=== PATIENT | male | born 1950 | race Caucasian/White ===

== ENCOUNTER → 2019-12-29 | Outpatient (CLI) | payer MEDICARE ==
[~2019-12-29] MED LIST: FLOM0.4C39 PO; QC A650T3 PO; VARE05TA PO
== END ==
LOC: M LABSMTC 10:59
PROVIDERS: ATTEND Anesthesiology
DX: Z01.818 Encounter for other preprocedural examination (principal); Z11.59 Encounter for screening for other viral diseases

== ENCOUNTER 2019-12-30 08:39 | Day surgery (SDC) | payer MEDICARE ==
[~2019-12-30] VITALS: Ht 182.9 cm; Wt 102.1 kg
[~2019-12-30 08:39] MED LIST changes: +LIDOCAINE 1% MDV 20ML VIAL SQ PRN; +LR 1,000 ML IV ONE; -QC A650T3 PO; +ceFAZolin SOD 2 GM in IV 1 EA IV ONE
[2019-12-30] MEDS ORDERED: QC A650T3 PO (10:05)
[2019-12-30] MEDS ORDERED: MIDAZOLAM INJ 2MG/2ML VIAL (J2250 PER 1MG) IV PRN (12:00)
[2019-12-30] MEDS ORDERED: LIDOCAINE 1% MDV 20ML VIAL As Ordered ONE (12:56)
[2019-12-30] MEDS ORDERED: BUPIVACAINE HCL 0.25% 10ML VIAL As Ordered ONE (12:57)
[2019-12-30] MEDS ORDERED: BACITRACIN OINTMENT 30GM TUBE As Ordered ONE (12:57)
[2019-12-30] MEDS ORDERED: fentaNYL 100 MCG/2 ML INJECTION (J3010) As Ordered ONE (13:29)
[2019-12-30] MEDS ORDERED: LIDOCAINE 2% 100MG/5ML SDV (FOR ANES.) As Ordered ONE (13:29)
[2019-12-30] MEDS ORDERED: ONDANSETRON 4MG/2ML VIAL As Ordered ONE (13:29)
[2019-12-30] MEDS ORDERED: propofoL 200 MG/20 ML VIAL As Ordered ONE (13:29)
[2019-12-30] MEDS ORDERED: dexameTHASONE 4 MG/ML 1ML VIAL (J1100 PER 1MG) As Ordered ONE (13:29)
[2019-12-30] MEDS ORDERED: MIDAZOLAM INJ 2MG/2ML VIAL (J2250 PER 1MG) As Ordered ONE (13:29)
[2019-12-30] MEDS ORDERED: ACETAMINOPHEN 1000MG 100ML IV BTL (OFIRMEV) (J0131 PER 10MG) As Ordered ONE (13:44)
[2019-12-30] MEDS ORDERED: LABETALOL 100MG/20ML VIAL As Ordered ONE (14:16)
[2019-12-30] MEDS ORDERED: PERCOCET 5MG/325MG TAB PO PRN ×2 (14:45)
[2019-12-30] MEDS ORDERED: METOCLOPRAMIDE INJ 10MG/2ML VIAL (J2765 PER 1) IV PRN (14:45)
[2019-12-30] MEDS ORDERED: LR 1,000 ML IV SCH ×2 (14:45→15:45)
[2019-12-30] MEDS ORDERED: ONDANSETRON 4MG/2ML VIAL IV PRN (14:45)
[2019-12-30] MEDS ORDERED: fentaNYL 100 MCG/2 ML INJECTION (J3010) IV PRN (14:45)
[2019-12-30] MEDS ORDERED: KETOROLAC 30 MG/ML 1ML VIAL As Ordered ONE (14:58)
--- NOTE | 2019-12-30 15:02 | ROOPDOC ---
[facility] Report Of Operation Report of Operation DATE OF PROCEDURE: 12/30/19 PREPROCEDURE DIAGNOSIS: Right hydrocele. POSTPROCEDURE DIAGNOSIS: Right hydrocele. PROCEDURE: Right hydrocelectomy. SURGEON: Sarbjit Shields MD TACTICAL DEBRIEFER: None ANESTHESIA: General. OPERATIVE INDICATIONS: This is a 69-year-old male with a large right hydrocele who was brought to the operating room today for treatment. DESCRIPTION OF PROCEDURE: The patient was brought to the operating room and general anesthesia was induced. Prophylactic antibiotics were infused. He was placed in supine position and prepped and draped in the usual sterile fashion. At this point, an approximately 4 cm transverse incision was made over the right hemiscrotum. We then dissected down through the scrotal wall layers using electrocautery. The testicle was then delivered out of the right hemiscrotum. The tunica vaginalis was then punctured and then a large amount of serous fluid drained from the right hydrocele. The hydrocele sac was then excised using electrocautery. We then over sewed the edges of the hydrocele sac using running #3-0 Vicryl sutures. Once that was done, we checked for hemostasis and any small areas of bleeding were controlled with electrocautery. The testicle was then delivered back inside the right hemiscrotum in its normal anatomic position. Throughout the procedure I made sure not to cause any damage to the testicle, blood supply or the vas deferens. Once that was done, the dartos was closed with a running #3-0 Vicryl suture. The skin was then closed with interrupted #2-0 chromic suture. Dressings were applied and this marked the conclusion of the procedure. The patient was then awakened from anesthesia and transferred for the recovery room in stable condition. ESTIMATED BLOOD LOSS: 10 mL. COMPLICATIONS: None. SPECIMENS: Right hydrocele sac. PLAN: The patient will followup in the clinic in a few weeks for a postoperative visit. SARBJIT SHIELDS MD Dec 30, 2019 15:02
[2019-12-30] MEDS ORDERED: KETOROLAC 30 MG/ML 1ML VIAL IV ONE (15:15)
[2019-12-30] MEDS ORDERED: oxyCODONE 5MG TAB As Ordered ONE (15:22)
[2019-12-30] MEDS ORDERED: MORPHINE 2 MG/ML 1ML VIAL (J2270) IV PRN (15:45)
[2019-12-30] MEDS ORDERED: oxyCODONE 5MG TAB PO PRN (15:45)
[2019-12-30 16:25] VITALS: BP 150/82
== END 2019-12-30 16:30 | disposition home or self-care (01) ==
LOC: M SDC 08:39
PROVIDERS: ATTEND Urology
DX: N43.3 Hydrocele, unspecified (principal); N40.1 Benign prostatic hyperplasia with lower urinary tract symptoms; R39.11 Hesitancy of micturition; I10 Essential (primary) hypertension; F17.210 Nicotine dependence, cigarettes, uncomplicated; Z79.899 Other long term (current) drug therapy
CPT/HCPCS: 55040; 88302; J0131; J0690; J1100; J1885; J2250; J2405; J3010

== ENCOUNTER → 2021-04-18 | Outpatient (CLI) | payer MEDICARE ==
[~2021-04-18] MED LIST changes: +LIDOCAINE 1% MDV 20ML VIAL As Ordered ONE; -LIDOCAINE 1% MDV 20ML VIAL SQ PRN; -LR 1,000 ML IV ONE; +QC A650T3 PO; -ceFAZolin SOD 2 GM in IV 1 EA IV ONE
[2021-04-18 14:30] VITALS: BP 186/82
--- NOTE | 2021-04-18 17:23 | REP ---
INDICATION: H/O LUNG CA RT THYROID NODULE. COMPARISON: None. TECHNIQUE: The procedure was performed under the direct supervision of Dr. Nunes. The risks and benefits of the procedure were explained to the patient and informed consent was obtained. The left thyroid nodule was localized using ultrasound guidance. The skin was prepped and draped in a sterile fashion. 4 mL of 1% lidocaine was used as a local anesthetic. Using ultrasound guidance 6 fine-needle aspirations were obtained using 25 gauge needles. Estimated blood loss: Less than 1 mL. The patient tolerated the procedure well and there were no immediate complications. After the appropriate amount to monitor convalescence the patient was discharged from the department. FINDINGS: None IMPRESSION: Ultrasound-guided left thyroid biopsy. <Electronically signed by Abdelrahman Yost > 04/18/21 [id number] <Electronically signed by Jonnathan Nunes > 04/18/21 [id number]
== END ==
LOC: M IRPRO 13:04
PROVIDERS: ATTEND Otolaryngology
DX: D34 Benign neoplasm of thyroid gland (principal)

== ENCOUNTER 2025-04-21 10:00 | Day surgery (SDC) | payer MEDICARE ==
[~2025-04-21] VITALS: Ht 177.8 cm; Wt 91.6 kg
[~2025-04-21 10:00] MED LIST changes: +AMLO1TAB24 PO; +ATOR1TAB21 PO; +BISO10TA14 PO; +ECOT81TA5 PO; -FLOM0.4C39 PO; +IBUP200T46 PO; +IRBE300T12 PO; -LIDOCAINE 1% MDV 20ML VIAL As Ordered ONE; +LIDOCAINE 2% 100 MG/5 ML SDV (FOR ANES.) As Ordered ONE; +MIDAZOLAM INJ 2 MG/2 ML VIAL As Ordered ONE; +TAMS-18 PO; +TAMS1CAP17 PO; +ceFAZolin SOD 2 GM IV ONCE IV ONE
[2025-04-21] MEDS: LR 1,000 ML IV SCH (10:47)
[2025-04-21] MEDS ORDERED: ACETAMINOPHEN 1000MG/100ML IV BAG As Ordered ONE (11:52)
[2025-04-21] MEDS ORDERED: KETOROLAC 30 MG/ML 1 ML VIAL As Ordered ONE (12:04)
[2025-04-21] MEDS ORDERED: dexAMETHasone 4 MG/ML 1 ML VIAL As Ordered ONE (12:04)
[2025-04-21] MEDS: LIDOCAINE 1% SDV 30 ML VIAL As Ordered ONE (12:23)
[2025-04-21] MEDS ORDERED: LR 1,000 ML IV SCH (12:30)
[2025-04-21] MEDS ORDERED: HYDROMORPHONE HCL 0.5 MG/0.5 ML SYRINGE IV PRN (12:30)
[2025-04-21] MEDS ORDERED: ONDANSETRON 4MG 2ML VIAL IV PRN (12:30)
[2025-04-21] MEDS ORDERED: CEPH500C PO (12:49)
[2025-04-21] MEDS ORDERED: OXYC1TAB23 PO (12:49)
[2025-04-21 13:27] VITALS: BP 152/74; TEMP 96.9; O2SAT 99
== END 2025-04-21 13:51 | disposition home or self-care (01) ==
LOC: M SDC 10:00
PROVIDERS: ATTEND Urology
DX: N43.3 Hydrocele, unspecified (principal); N40.0 Benign prostatic hyperplasia without lower urinary tract symptoms; I10 Essential (primary) hypertension; E66.9 Obesity, unspecified; Z79.899 Other long term (current) drug therapy; E78.00 Pure hypercholesterolemia, unspecified; F17.210 Nicotine dependence, cigarettes, uncomplicated; Z79.82 Long term (current) use of aspirin; Z68.28 Body mass index [BMI] 28.0-28.9, adult
CPT/HCPCS: 55040; 88302; 93005; J0131; J0665; J1100; J1885; J2250; J3010